=== PATIENT | female | born 1970 | race Caucasian/White ===

== ENCOUNTER 2019-02-10 17:45 | Emergency (ER) | payer SELFPAY ==
[~2019-02-10] VITALS: Ht 162.5 cm; Wt 90.1 kg
[~2019-02-10 17:45] MED LIST: ACET500L36 PO; ACHYD1T PO; ALBU8.5H4 IH; ALPR1TAB PO; AMIT100T2 PO; AZIT-21 PO; AZIT250T12 PO; BUPR100T7 PO; BUPR150T20 PO; BUTA1TAB46 PO; BUTA1TAB55 PO; CALCIUM PO; CEFA250C PO; CEFD300C3 PO; CEFU250T PO; CEPH500C GT; CEPH500C PO; CHOL500049 PO; CITA10TA70 PO; CLIN300C3 PO; CLON1TAB36 PO; COLE1TAB PO; CYCL10TA9 PO; DICY10CA12 PO; DICY20TA10 PO; DIPH1TAB PO; DIPH1TAB25 PO; DOXY100C2 PO; DULO60CA6 PO; Drisdol PO; ERT250T PO; FAMO-119 PO; FLC150T PO; FLUT9.9S NSEACH; FURO20TA4 PO; HYDR-1231 PO; HYDR-4226 PO; HYDR1TAB PO; HYDR1TAB8 OP; HYDR1TAB86 PO; HYOS-6; LACT10SO PO; LACT10SO33 PO; LINA5TAB PO; MAGN400T6 PO; MECL25TA56 PO; METH4TAB PO; METO-354 PO; METO10TA3 PO; METO25TA PO; METR500T PO; MTP25TSR PO; NF-ESOM40C PO; NITR-33 PO; NITR-65 PO; NITR100C PO; OMEP20CA13 PO; ONDA-42 SL; ONDA4TAB11 PO; ONDA8TAB9 PO; ONDAN4ODT PO; ONDN4T PO; PEG1POWD PO; PHEN200T27 PO; POLY119P5 PO; PRCD5U PO; PRD20T PO; PRD50T PO; PRM25T PO; PRM50SU PR; PROBIOTIC1 EACH PO; PROM25SU44 RC; PROP40TA5 PO; RABE20TA PO; RNT150T PO; RT-ALBUINH IH; SCOP1PAT11 TD; SCR1T PO; SENN-35 PO; SERT100T8 PO; SERT25TA PO; SUCR1ORA5 PO; SUMA100T2 PO; TOPI25CA6 PO; TOPI50TA2 PO; TRAM-21 PO; TRIM100T7 PO; ZLP10T PO; ZLP5T PO; ZOLP5TAB7 PO; [UNRECOGNIZED DRUG - CODE] PO; [UNRECOGNIZED DRUG - OTHER]; antibiotic PO; trimethoprim PO
--- NOTE | 2019-02-10 18:13 | NUR ---
Has taken excedrin at noon and zofran today. was able to take phone call during admission process
[2019-02-10] MEDS ORDERED: NS IV 1000 ML 1,000 ML IV ONE (18:19)
--- NOTE | 2019-02-10 18:28 | ED General ---
General Chief Complaint: Head/Cervical Problems Stated Complaint: HEADACHE/DIZZY/ELEV BP Nursing Triage Note: C/O "not feeling well". ambulated to rm 7. States that yesterday her head hurt and her eyes were blood shot. Bosstefan sent her home. Took bp 140/101. States taht she has been off bp meds for a awhile but took one last night. This morning- KERNS, dizzy, nausea, can't eat, has only voided once, lips tingle. No discomfort when she voids Nursing Sepsis Screen: No Definite Risk Source of Information: Patient History of Present Illness Date Seen by Provider: Feb 10, 2019 Time Seen by Provider: 18:10 Initial Comments PT ARRIVES VIA POV STATES SHE HAS "FELT LOUSY" FOR THE LAST COUPLE OF DAYS C/O HEADACHE X 2 DAYS--TOP OF HEAD. HAS HISTORY OF MIGRAINES, AND TAKES TOPAMAX. TOOK 1 EXCEDRIN AT NOON TODAY, OTDAYDAY ROBBINS HAS NOT TAKEN ANY OTHER PAIN MEDICATIONS STATES HEADACHE IS NOT BAD TODAY IT WAS YESTERDAY HAS HX OF HTN, AND SELF DC'D BP MEDICATION OVER A YEAR AGO, "BECAUSE IT WAS UNDER CONTROL" --DOES NOT KNOW NAME OF MEDICATION, BUT POSSIBLE TOPROL. STATES SHE CHECKED HER BP YESTERDAY AND IT WAS 145/101 LAST PM, DID NOT CHECK BP TODAY. TOOK OLD BP MEDICATION LAST NIGHT AND AGAIN THIS AM. 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 VISION IS NORMAL AT THIS TIME STATES HER LIPS AND FINGERS ARE TINGLY STATES SHE DID NOT URINATE AT ALL YESTERDAY AND ONLY VOIDED ONCE TODAY STATES SHE HAS ONLY HAD A COUPLE OF CRACKERS TO EAT TODAY, AND 4 GLASSES OF WATER. STATES SHE HAS "KIDNEY DISEASE" BUT DOES NOT KNOW WHAT KIND OR HOW BAD IT IS. DOES NOT SEE A FAMILY INTERVENTION SPECIALIST STATES SHE IS ALSO DIABETIC, BUT SELF DC'D HER METFORMIN A FEW YEARS AGO "BECAUSE IT WAS UNDER CONTROL" NO FEVER OR RECENT ILLNESS NO URI/SINUS SYMPTOMS NO ABDOMINAL PAIN PCP: ARGENIS--STATES SHE JUST MOVED BACK HERE, AFTER LIVING IN [place] FOR THE LAST 3 YEARS Allergies and Home Medications Allergies Coded Allergies: Penicillins (Verified Allergy, Severe, SEIZURES, 11/25/15) morphine (Verified Allergy, Severe, ANAPHYLAXIS, 11/25/15) ciprofloxacin (Verified Allergy, Intermediate, TONGUE SWELLING, 11/25/15) ciprofloxacin HCl (Verified Allergy, Mild, TONGUE SWELLING, 11/25/15) Sulfa (Sulfonamide Antibiotics) (Verified Allergy, Unknown, HIVES, 11/25/15) Home Medications Albuterol Sulfate 8.5 Gm Hfa.aer.ad, 1-2 PUFF IH Q4H PRN for shortness of breath Prescribed by: JUSTIN STAFFORD on 11/27/15 09 Amitriptyline Hcl 100 Mg Tablet, 100 MG PO HS, (Reported) Azithromycin 250 Mg Tablet, 250 MG PO DAILY Prescribed by: JUSTIN STAFFORD on 11/27/15924 Bupropion Hcl 150 Mg Tablet.sa, 150 MG PO 1200, BEDTIME, (Reported) Cefaclor 250 Mg Capsule, 250 MG PO DAILY, (Reported) Cholecalciferol (Vitamin D3) 50,000 Unit Capsule, 50,000 UNIT PO WEEK, (Reported) Clonazepam 1 Mg Tablet, 0.5-1 MG PO QID PRN for ANXIETY, (Reported) TAKES 1/2 TO 1 (1MG) TABLET Famotidine 20 Mg Tablet, 20 MG PO BID Prescribed by: DENISHA RYDER on 05/08/152056 Fluticasone Propionate 9.9 Ml [place].susp, 2 SPRAYS NSEACH DAILY Prescribed by: BRENDA العلي on 11/14/15 0153 Hyoscyamine Sulfate 0.125 Mg Tab.rapdis, NEEDED, (Reported) Lactulose 10 Gm/15 Ml Solution, 10 GM PO DAILY PRN for CONSTIPATION, (Reported) Meclizine HCl 25 Mg Tablet, 25-50 MG PO Q6H Prescribed by: KIMBERLEE CASTELLANOS on 02/10/191930 Metoclopramide HCl 10 Mg Tablet, 10 MG PO QID Prescribed by: DENISHA RYDER on 05/08/152056 Omeprazole 20 Mg Capsule.dr, 20 MG PO BID Prescribed by: JACQUIE JOSE on 06/17/15 111 Ondansetron 4 Mg Tab.rapdis, 4 MG PO Q4H PRN for NAUSEA Prescribed by: DENISHA RYDER on 05/08/152056 Peg 3350/Na Sulf,Bicarb,Cl/KCl 1 Each Powd.pack, 1 EACH PO Q3 DAYS , (Reported) Polyethylene Glycol 3350 119 Gm Powder, 17 GM PO HS PRN for CONSTIPATION Prescribed by: DENISHA RYDER on 05/08/152056 Prednisone 50 Mg Tab, 50 MG PO DAILY Prescribed by: JUSTIN STAFFORD on 11/27/15 09 Scopolamine 1 Each Patch.td72, 1 EACH TD Q3 DAYS, (Reported) Topiramate 50 Mg Tablet, 50 MG PO BID, (Reported) Zolpidem Tartrate 5 Mg Tablet, 5 MG PO HS PRN for INSOMNIA, (Reported) Patient Home Medication List Home Medication List Reviewed: Yes Review of Systems Review of Systems Constitutional: see HPI; No chills, No diaphoresis; dizziness; No malaise, No weakness EENTM: blurred vision; No nose congestion Respiratory: no symptoms reported; No short of breath Cardiovascular: no symptoms reported; No chest pain, No edema, No palpitations, No syncope Gastrointestinal: see HPI; No abdominal pain, No diarrhea; loss of appetite, nausea; No vomiting Genitourinary: see HPI, decreased output Musculoskeletal: no symptoms reported; No back pain, No neck pain Skin: no symptoms reported Psychiatric/Neurological: See HPI, Headache; Denies Numbness; Paresthesia; Denies Seizure; Tingling; Denies Weakness Hematologic/Lymphatic: No Symptoms Reported Immunological/Allergic: no symptoms reported Past Htyklpy-Ncfuql-Uriiio Hx Past Med/Social Hx: Reviewed and Corrections made Patient Social History Alcohol Use: Denies Use Recreational Drug Use: No Smoking Status: Never a Smoker Recent Foreign Travel: No Contact w/Someone Who Travel: No Recent Infectious Disease Expo: No Recent Hopitalizations: No (gastrparesis) Physical Abuse: No Sexual Abuse: No Mistreated: No Fear: No Immunizations Up To Date Tetanus Booster (TDap): Unknown Date of Influenza Vaccine: Mar 01, 2015 Seasonal Allergies Seasonal Allergies: No Past Medical History Surgeries: Yes (BLADDER SUSPENSION; LAPAROSCOPIES; CYSTOCOELE/RECTOCOELE REPAIR; HYST/BSO; KIDNEY STONE REMOVAL; HERNIA REPAIR X 2) Abdominal, Appendectomy, Bladder Surgery, Gallbladder, Hysterectomy, Oophorectomy, Renal, Tonsillectomy Respiratory: Yes Asthma, Pneumonia, Chronic Bronchitis, Sleep Apnea Currently Using CPAP: No Currently Using BIPAP: No Cardiac: Yes (SELF DC'D BP MEDICATION > 1 YEAR AGO) Hypertension Neurological: Yes (SEIZURE X 1 AFTER SURGERY; "BAD CONCUSSION" AND WENT TO THERAPY FOR 3 MONTHS) Concussion, Headaches /Migraines Reproductive Disorders: Yes Female Reproductive Disorders: 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 W[employer]ATH AND [employer]AR[employer] HAND History: Hysterectomy Sexually Transmitted Disease: No HIV/AIDS: No Genitourinary: Yes (CHRONIC RENAL DISEASE, PER PT) Kidney Infection, Bladder Infection, Kidney Stones, Renal Failure, UTI-Chronic Gastrointestinal: Yes (GASTROPARESIS; HERNIA REPAIR X 2) Abdominal Hernia, Gastroesophageal Reflux, Liver Disease/Jaundice, Chronic Constipation, Diverticulosis, Hemorrhoids, Polyps, Gall Bladder Disease Musculoskeletal: Yes (HX OF CHRONIC GENERALIZED PAIN COMPLAINTS) Endocrine: Yes (SEFL DC'D METFORMIN YEARS AGO) Diabetes, Non-Insulin dep HEENT: Yes (TONSILLECTOMY) Tonsilitis Loss of Vision: Denies Hearing Impairment: Denies Cancer: No Psychosocial: Yes Anxiety, Depression Integumentary: No Blood Disorders: No Adverse Reaction/Blood Tranf: No Family Medical History Alcoholism 19 FATHER G8 BROTHER G8 BROTHER Arthritis 19 MOTHER Asthma G8 SISTER Cataracts 19 FATHER Diabetes mellitus 19 FATHER Headache disorder G8 BROTHER G8 BROTHER G8 SISTER G8 SISTER Hypercholesterolemia 19 MOTHER Hypertension 19 FATHER 19 MOTHER Osteoporosis 19 MOTHER Respiratory disorder 19 MOTHER Hypertension, Renal Disease Physical Exam Vital Signs Vital Signs - First Documented 02/10/19 18:00 Temp 36.8 Pulse 72 Resp 16 B/P (MAP) 120/76 (91) Pulse Ox 100 Capillary Refill : Less Than 3 Seconds Height, Weight, BMI Height: 5'4.00" Weight: 186lbs. 7.0oz. 84.258477vy; 34.00 BMI Method:Stated General Appearance: No Apparent Distress, WD/WN HEENT: PERRL/EOMI Neck: Full Range of Motion, Normal Inspection, Non Tender, Supple; No Carotid Bruit, No JVD Respiratory: Normal Breath Sounds, No Accessory Muscle Use, No Respiratory Distress Cardiovascular: Regular Rate, Rhythm, No Edema, No Gallop, No JVD, No Murmur, Normal Peripheral Pulses Gastrointestinal: Normal Bowel Sounds, No Organomegaly, No Pulsatile Mass, Non Tender, Soft Back: No CVA Tenderness Extremity: Normal Capillary Refill, Normal Inspection, Normal Range of Motion, Non Tender, No Calf Tenderness, No Pedal Edema Neurologic/Psychiatric: Alert, Oriented x3, No Motor/Sensory Deficits, Normal 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/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, 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 Norm as Tested; No Abnormal Cerebellar Tests Skin: Normal Color, Warm/Dry; No Rash Progress/Results/Core Measures Suspected Sepsis Recent Fever Within 48 Hours: No Infection Criteria Present: None New/Unexplained Altered Menta: No Sepsis Screen: No Definite Risk SIRS Temperature: Pulse: 72 Respiratory Rate: 16 Laboratory Tests 02/10/19 18:19: White Blood Count 9.0 Blood Pressure 120 /76 Mean: 91 Laboratory Tests 02/10/19 18:19: Creatinine 1.64H, INR Comment 0.9, Platelet Count 321, Total Bilirubin 0.6 Results/Orders Lab Results Laboratory Tests Test 02/10/19 18:19 02/10/19 18:20 02/10/19 18:26 Range/Units White Blood Count 9.0 4.3-11.0 10^3/uL Red Blood Count 4.84 4.35-5.85 10^6/uL Hemoglobin 13.9 11.5-16.0 G/DL Hematocrit 41 35-52 % Mean Corpuscular Volume 85 80-99 FL Mean Corpuscular Hemoglobin 29 25-34 PG Mean Corpuscular Hemoglobin Concent 34 32-36 G/DL Red Cell Distribution Width 12.9 10.0-14.5 % Platelet Count 321 130-400 10^3/uL Mean Platelet Volume 9.2 7.4-10.4 FL Neutrophils (%) (Auto) 71 42-75 % Lymphocytes (%) (Auto) 20 12-44 % Monocytes (%) (Auto) 8 0-12 % Eosinophils (%) (Auto) 0 0-10 % Basophils (%) (Auto) 0 0-10 % Neutrophils # (Auto) 6.4 1.8-7.8 X 10^3 Lymphocytes # (Auto) 1.8 1.0-4.0 X 10^3 Monocytes # (Auto) 0.7 0.0-1.0 X 10^3 Eosinophils # (Auto) 0.0 0.0-0.3 10^3/uL Basophils # (Auto) 0.0 0.0-0.1 10^3/uL Prothrombin Time 12.9 12.2-14.7 SEC INR Comment 0.9 0.8-1.4 Activated Partial Thromboplast Time 31 24-35 SEC Sodium Level 138 135-145 MMOL/L Potassium Level 3.8 3.6-5.0 MMOL/L Chloride Level 105 98-107 MMOL/L Carbon Dioxide Level 22 21-32 MMOL/L Anion Gap 11 5-14 MMOL/L Blood Urea Nitrogen 19 H 7-18 MG/DL Creatinine 1.64 H 0.60-1.30 MG/DL Estimat Glomerular Filtration Rate 33 BUN/Creatinine Ratio 12 Glucose Level 101 70-105 MG/DL Calcium Level 9.7 8.5-10.1 MG/DL Corrected Calcium 8.5-10.1 MG/DL Magnesium Level 2.1 1.6-2.4 MG/DL Total Bilirubin 0.6 0.1-1.0 MG/DL Aspartate Amino Transf (AST/SGOT) 24 5-34 U/L Alanine Aminotransferase (ALT/SGPT) 15 0-55 U/L Alkaline Phosphatase 76 40-136 U/L Troponin I < 0.028 <0.028 NG/ML B-Type Natriuretic Peptide 10.2 <100.0 PG/ML Total Protein 7.4 6.4-8.2 GM/DL Albumin 4.7 H 3.2-4.5 GM/DL Urine Color YELLOW Urine Clarity CLEAR Urine pH 7 5-9 Urine Specific [place] 1.010 L 1.016-1.022 Urine Protein 1+ H NEGATIVE Urine Glucose (UA) NEGATIVE NEGATIVE Urine Ketones 1+ H NEGATIVE Urine Nitrite NEGATIVE NEGATIVE Urine Bilirubin NEGATIVE NEGATIVE Urine Urobilinogen 1 NORMAL MG/DL Urine Leukocyte Esterase NEGATIVE NEGATIVE Urine RBC (Auto) NEGATIVE NEGATIVE Urine RBC NONE /HPF Urine WBC RARE /HPF Urine Squamous Epithelial Cells 2-5 /HPF Urine Crystals NONE /LPF Urine Bacteria FEW H /HPF Urine Casts NONE /LPF Urine Mucus NEGATIVE /LPF Urine Culture Indicated NO Glucometer 69 L 70-110 MG/DL My Orders Orders - KIMBERLEE CASTELLANOS DO Accucheck Stat ONCE (02/10/19 18:19) Ed Iv/Invasive Line Start (02/10/19 18:19) Ekg Tracing (02/10/19 18:19) Monitor-Rhythm Ecg Trace Only (02/10/19 18:19) Ct Head Wo-R/O Stroke (02/10/19 18:19) Chest Pa/Lat (2 View) (02/10/19 18:19) BNP (02/10/19 18:19) Cbc With Automated Diff (02/10/19 18:19) Comprehensive Metabolic Panel (02/10/19 18:19) Magnesium (02/10/19 18:19) Protime With Inr (02/10/19 18:19) Partial Thromboplastin Time (02/10/19 18:19) Ua Culture If Indicated (02/10/19 18:19) Troponin I (02/10/19 18:19) Ed Iv/Invasive Line Start (02/10/19 18:19) Ns Iv 1000 Ml (Sodium Chloride 0.9%) (02/10/19 18:19) Ondansetron Injection (Zofran Injectio (02/10/19 18:30) Ketorolac Injection (Toradol Injection) (02/10/19 19:15) Ed Iv/Invasive Line Start (02/10/19 19:01) Lactated Ringers (Lr 1000 Ml Iv Solution (02/10/19 19:01) Pantoprazole Injection (Protonix Injecti (02/10/19 19:15) Scopolamine Patch (Transderm-Scop Patch) (02/10/19 19:15) Meclizine Tablet (Antivert Tablet) (02/10/19 19:15) Medications Given in ED Current Medications Medications Dose Ordered Sig/Yoana Route Start Time Stop Time Status Last Admin Dose Admin Ketorolac Tromethamine 30 mg ONCE ONCE IVP 02/10/19 19:15 02/10/19 19:16 DC 02/10/19 19:19 30 MG Lactated Ringer's 1,000 ml @ 0 mls/hr Q0M ONCE IV 02/10/19 19:01 02/10/19 19:03 DC 02/10/19 19:19 1,000 MLS/HR Meclizine HCl 50 mg ONCE ONCE PO 02/10/19 19:15 02/10/19 19:16 DC 02/10/19 19:19 50 MG Ondansetron HCl 8 mg ONCE ONCE IVP 02/10/19 18:30 02/10/19 18:31 DC 02/10/19 18:29 8 MG Pantoprazole 40 mg ONCE ONCE IV 02/10/19 19:15 02/10/19 19:16 DC 02/10/19 19:19 40 MG Scopolamine 1.5 mg ONCE ONCE TD 02/10/19 19:15 02/10/19 19:16 DC 02/10/19 19:20 1.5 MG Sodium Chloride 1,000 ml @ 0 mls/hr Q0M ONCE IV 02/10/19 18:19 02/10/19 18:22 DC 02/10/19 18:29 1,000 MLS/HR Vital Signs/I&O 02/10/19 18:00 Temp 36.8 Pulse 72 Resp 16 B/P (MAP) 120/76 (91) Pulse Ox 100 Capillary Refill : Less Than 3 Seconds Blood Pressure Mean: 91 Progress Note : Progress Note SYMPTOMS IMPROVED AT DISMISSAL ECG Initial ECG Impression Date: Feb 10, 2019 Initial ECG Impression Time: 18:30 Initial ECG Rate: 68 Initial ECG Rhythm: Normal Sinus Initial ECG Impression: Nonspecific Changes Initial ECG Comparisson: Unchanged Diagnostic Imaging Comments CT HEAD--NO ACUTE PROCESS CXR--NO ACUTE PROCESS PER RADIOLOGIST REPORTS AT 1900 Reviewed: Reviewed by Me Departure Impression Primary Impression: Headache Additional Impressions: HX OF HTN DEHYDRATION WITH RENAL INSUFFICIENCY Disposition: HOME, SELF-CARE Condition: Improved Departure-Patient Inst. Referrals: JUSTIN STAFFORD MD (PCP/Family) Primary Care Physician Patient Instructions: Chronic Kidney Disease, Dehydration, Adult (DC), Headache, Adult (DC), High Blood Pressure (DC) Add. Discharge Instructions: INCREASE YOUR CLEAR LIQUIDS--WATER, BROTH, JELLO, GATORADE LEAVE SCOPOLAMINE PATCH IN PLACE FOR 72 HOURS CONTINUE YOUR REGULAR MEDICATIONS PRESCRIBED, AND CONTINUE TAKING YOUR BLOOD PRESSURE MEDICATION EVERY DAY TYLENOL AND MOTRIN NEEDED FOR PAIN FOLLOW UP WITH [facility] IN 2-3 DAYS FOR FURTHER CARE, RETURN TO ER IF WORSE All discharge instructions reviewed with patient and/or family. Voiced understanding. Scripts Meclizine HCl (Meclizine HCl) 25 Mg Tablet 25-50 MG PO Q6H for Dizziness, #30 TAB Prov: KIMBERLEE CASTELLANOS DO 02/10/19 KIMBERLEE CASTELLANOS DO Feb 10, 2019 18:28
[2019-02-10] MEDS ORDERED: ONDANSETRON 4 MG/2 ML (SDV) Z0FRAN IVP ONE (18:30)
[2019-02-10 18:33] LABS: BASOPHILS % (AUTO) 0 % (0-10); EOSINOPHILS % (AUTO) 0 % (0-10); HEMATOCRIT 41 % (35-52); HEMOGLOBIN 13.9 G/DL (11.5-16.0); LYMPHOCYTES # (AUTO) 1.8 X 10^3 (1.0-4.0); LYMPHOCYTES % (AUTO) 20 % (12-44); MEAN CORPUSCULAR HEMOGLOBIN 29 PG (25-34); MEAN CORPUSCULAR HGB CONC 34 G/DL (32-36); MEAN CORPUSCULAR VOLUME 85 FL (80-99); MEAN PLATELET VOLUME 9.2 FL (7.4-10.4); MONOCYTES # (AUTO) 0.7 X 10^3 (0.0-1.0); MONOCYTES % (AUTO) 8 % (0-12); NEUTROPHILS # (AUTO) 6.4 X 10^3 (1.8-7.8); NEUTROPHILS % (AUTO) 71 % (42-75); PLATELET COUNT 321 10^3/uL (130-400); RED CELL DISTRIBUTION WIDTH 12.9 % (10.0-14.5)
[2019-02-10 18:34] LABS: BILIRUBIN,URINE NEGATIVE (NEGATIVE); CLARITY,URINE CLEAR; COLOR,URINE YELLOW; GLUCOSE, URINE (UA) NEGATIVE (NEGATIVE); KETONES,URINE 1+ (NEGATIVE); LEUKOCYTE ESTERASE ,URINE NEGATIVE (NEGATIVE); NITRITE,URINE NEGATIVE (NEGATIVE); PH,URINE 7 (5-9); PROTEIN,URINE 1+ (NEGATIVE); UROBILINOGEN,URINE 1 MG/DL (NORMAL)
[2019-02-10 18:44] LABS: INR 0.9 (0.8-1.4); PROTHROMBIN TIME PATIENT 12.9 SEC (12.2-14.7)
[2019-02-10 18:47] LABS: BACTERIA,URINE FEW /HPF; WBC,URINE RARE /HPF
[2019-02-10 18:53] LABS: ALANINE AMINOTRANSFERASE 15 U/L (0-55); ALBUMIN 4.7 GM/DL (3.2-4.5); ALKALINE PHOSPHATASE 76 U/L (40-136); BILIRUBIN,TOTAL 0.6 MG/DL (0.1-1.0); BUN/CREATININE RATIO 12; CALCIUM 9.7 MG/DL (8.5-10.1); CARBON DIOXIDE 22 MMOL/L (21-32); CHLORIDE 105 MMOL/L (98-107); CREATININE SERUM 1.64 MG/DL (0.60-1.30); GFR ESTIMATED 33; GLUCOSE 101 MG/DL (70-105); MAGNESIUM 2.1 MG/DL (1.6-2.4); POTASSIUM 3.8 MMOL/L (3.6-5.0); SODIUM 138 MMOL/L (135-145); TOTAL PROTEIN 7.4 GM/DL (6.4-8.2)
--- NOTE | 2019-02-10 18:56 | Diagnostic Imaging Report ---
PROCEDURE: CT head wo r/o stroke. TECHNIQUE: Multiple contiguous axial images were obtained through the brain without the use of intravenous contrast. Auto Exposure Controls were utilized during the CT exam to meet ALARA standards for radiation dose reduction. INDICATION: Headache, nausea x1 day. CORRELATION STUDY: CT head 04/27/2011. FINDINGS: The ventricles and sulci are age-appropriate. No abnormal areas of decreased attenuation to suggest edema. Increased density in the basilar artery appears unchanged from prior study and there is no suggestion for hyperdense MCA sign. Basilar cisterns are maintained. Bony calvarium is intact. Paranasal sinus and mastoid air cells are clear. IMPRESSION: 1. Negative for acute intracranial abnormality. Dictated by: Dictated on workstation # [id number]
--- NOTE | 2019-02-10 18:57 | Diagnostic Imaging Report ---
INDICATION: Headache and nausea. EXAMINATION: PA and lateral views of the chest are obtained. COMPARISON: Comparison is made to study of 11/26/2015. FINDINGS: Heart size and pulmonary vascularity are within normal limits, and the lungs are clear, bilaterally. IMPRESSION: Unremarkable chest. Dictated by: Dictated on workstation # [id number]
[2019-02-10] MEDS ORDERED: LACTATED RINGERS 1,000 ML IV ONE (19:01)
[2019-02-10] MEDS ORDERED: PANTOPRAZOLE 40 MG (PROTONIX) VIAL IV ONE (19:15)
[2019-02-10] MEDS ORDERED: SCOPOLAMINE 1.5 MG (TRANSDERM-SCOP) PATCH TD ONE (19:15)
[2019-02-10] MEDS ORDERED: KETOROLAC 30 MG/ML VIAL IVP ONE (19:15)
[2019-02-10] MEDS ORDERED: MECLIZINE 25 MG (ANTIVERT) TAB PO ONE (19:15)
[2019-02-10] MEDS ORDERED: MECL-106 PO (19:31)
[2019-02-10 20:10] VITALS: BP 118/61
== END 2019-02-10 20:11 | disposition home or self-care (01) ==
LOC: EDUNIT# 17:45 → ER 17:46
DX: R51 Headache (principal); I10 Essential (primary) hypertension; E86.0 Dehydration; N28.9 Disorder of kidney and ureter, unspecified; E11.43 Type 2 diabetes mellitus with diabetic autonomic (poly)neuropathy; K31.84 Gastroparesis; J45.909 Unspecified asthma, uncomplicated; G43.909 Migraine, unspecified, not intractable, without status migrainosus; F41.9 Anxiety disorder, unspecified; F32.9 Major depressive disorder, single episode, unspecified; K21.9 Gastro-esophageal reflux disease without esophagitis; Z88.0 Allergy status to penicillin; Z87.820 Personal history of traumatic brain injury; Z87.440 Personal history of urinary (tract) infections; Z87.442 Personal history of urinary calculi; Z88.5 Allergy status to narcotic agent; Z88.1 Allergy status to other antibiotic agents; Z88.2 Allergy status to sulfonamides; Z79.51 Long term (current) use of inhaled steroids; Z79.52 Long term (current) use of systemic steroids; Z90.710 Acquired absence of both cervix and uterus; Z90.722 Acquired absence of ovaries, bilateral; Z90.49 Acquired absence of other specified parts of digestive tract; Z90.89 Acquired absence of other organs; Z82.49 Family history of ischemic heart disease and other diseases of the circulatory system
CPT/HCPCS: 36415; 70450; 71046; 80053; 81000; 82962; 83735; 83880; 84484; 85025; 85610; 85730; 93005; 93041

== ENCOUNTER 2019-07-17 19:10 | Emergency (ER) | payer OTHER ==
[~2019-07-17] VITALS: Ht 165 cm; Wt 90.1 kg
[~2019-07-17 19:10] MED LIST changes: +MECL-149 PO; -OMEP20CA13 PO; +OMEP20CA18 PO
[2019-07-17] MEDS ORDERED: ORPHENADRINE 60 MG/2 ML (NORFLEX) AMP IM ONE (22:15)
[2019-07-17] MEDS ORDERED: TRM50T PO (22:22)
[2019-07-17] MEDS ORDERED: CYCL10TA9 PO (22:22)
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
[2019-07-17] MEDS ORDERED: RX-TRAMADOL 50 MG (ULTRAM) TAB PPK#4 PO STA (22:24)
[2019-07-17 22:42] VITALS: BP 137/84
== END 2019-07-17 22:42 | disposition home or self-care (01) ==
LOC: EDUNIT# 19:10 → ER 19:12
DX: S39.012A Strain of muscle, fascia and tendon of lower back, initial encounter (principal); M54.42 Lumbago with sciatica, left side; J45.909 Unspecified asthma, uncomplicated; I10 Essential (primary) hypertension; K21.9 Gastro-esophageal reflux disease without esophagitis; F41.9 Anxiety disorder, unspecified; F32.9 Major depressive disorder, single episode, unspecified; Z87.820 Personal history of traumatic brain injury; Z79.51 Long term (current) use of inhaled steroids; Z88.0 Allergy status to penicillin; Z88.5 Allergy status to narcotic agent; Z88.1 Allergy status to other antibiotic agents; Z88.2 Allergy status to sulfonamides; X50.1XXA Overexertion from prolonged static or awkward postures, initial encounter
CPT/HCPCS: 99284

== ENCOUNTER 2022-02-08 20:52 | Emergency (ER) | payer SELFPAY ==
[~2022-02-08] VITALS: Ht 165 cm; Wt 94.0 kg
[~2022-02-08 20:52] MED LIST changes: -CEFA250C PO; +CEFA250C44 PO; +CYCL10TA25 PO; -LACT10SO PO; +LACT10SO3 PO; +MTC10T PO; +SCOP1PAT10 TD; -SCOP1PAT11 TD; +TRM50T PO
[2022-02-08] MEDS ORDERED: diphenhydrAMINE 50 MG/ML INJ (BENADRYL) IV STA (20:59)
[2022-02-08] MEDS ORDERED: FAMOTIDINE 20MG/2ML IV (PEPCID) IV STA (20:59)
[2022-02-08] MEDS ORDERED: methylPREDNISolone 125 MG (Solu-MEDROL) VIAL IV STA (20:59)
[2022-02-08] MEDS ORDERED: RT-HYPERTONIC SALINE 3% 4 ML NEB INH ONE (21:00)
[2022-02-08] MEDS ORDERED: RT-epiNEPHrine (RACEMIC) 2.25% 0.5 ML VIAL INH ONE (21:00)
[2022-02-08] MEDS ORDERED: EPINEPHrine INJECTION 1 MG/ML AMP IM ONE (21:00)
[2022-02-08] MEDS ORDERED: FAMOTIDINE 20MG/2ML IV (PEPCID) ONE (21:10)
[2022-02-08] MEDS ORDERED: RT-epiNEPHrine (RACEMIC) 2.25% 0.5 ML VIAL ONE (21:14)
--- NOTE | 2022-02-08 21:44 | ED General ---
General Chief Complaint: Allergic Reaction Stated Complaint: ALLERGIC REACTION TO TOMATO,THROAT SWELLING Source of Information: Patient History of Present Illness Date Seen by Provider: Feb 08, 2022 Allergies and Home Medications Allergies Coded Allergies: Penicillins (Verified Allergy, Severe, SEIZURES, 11/25/15) morphine (Verified Allergy, Severe, ANAPHYLAXIS, 11/25/15) ciprofloxacin (Verified Allergy, Intermediate, TONGUE SWELLING, 11/25/15) ciprofloxacin HCl (Verified Allergy, Mild, TONGUE SWELLING, 11/25/15) Sulfa (Sulfonamide Antibiotics) (Verified Allergy, Unknown, HIVES, 11/25/15) Patient Home Medication List Albuterol Sulfate (Proair Hfa) 8.5 Gm Hfa.aer.ad, 1-2 PUFF IH Q4H PRN for shortness of breath Prescribed by: JUSTIN STAFFORD on 11/27/15 0925 Amitriptyline Hcl (Amitriptyline Hcl) 100 Mg Tablet, 100 MG PO HS, (Reported) Entered as Reported by: JOSEP GUPTA on 09/07/14 1550 Azithromycin (Azithromycin) 250 Mg Tablet, 250 MG PO DAILY Prescribed by: JUSTIN STAFFORD on 11/27/15 0925 Bupropion Hcl (Bupropion Hcl Sr) 150 Mg Tablet.sa, 150 MG PO 1200, BEDTIME, (R eported) Entered as Reported by: JOSEP GUPTA on 09/07/14 1550 Cefaclor (Cefaclor) 250 Mg Capsule, 250 MG PO DAILY, (Reported) Entered as Reported by: DARLIN MORILLO on 08/08/15 194 Cholecalciferol (Vitamin D3) (Vitamin D) 50,000 Unit Capsule, 50,000 UNIT PO WEEK, (Reported) Entered as Reported by: JUSTIN STAFFORD on 11/26/15 0934 Clonazepam (Klonopin) 1 Mg Tablet, 0.5-1 MG PO QID PRN for ANXIETY, (Reported) Entered as Reported by: KANA MAYS on 04/14/11 0214 Cyclobenzaprine HCl (Cyclobenzaprine HCl) 10 Mg Tablet, 10 MG PO Q8H PRN for SPASMS Prescribed by: DORIS ALVAREZ on 07/17/192221 Famotidine (Pepcid) 20 Mg Tablet, 20 MG PO BID Prescribed by: DENISHA RYDER on 05/08/152056 Fluticasone Propionate (Flonase Allergy Relief) 9.9 Ml [place].susp, 2 SPRAYS NSEACH DAILY Prescribed by: BRENDA العلي on 11/14/15 0153 Hyoscyamine Sulfate (Hyoscyamine Sulfate) 0.125 Mg Tab.rapdis, NEEDED, ( Reported) Entered as Reported by: ENDY SANCHEZ on 05/04/151917 Lactulose (Lactulose) 10 Gm/15 Ml Solution, 10 GM PO DAILY PRN for CONSTIPATION, (Reported) Entered as Reported by: JUSTIN STAFFORD on 11/26/15 0939 Meclizine HCl (Meclizine HCl) 25 Mg Tablet, 25-50 MG PO Q6H Prescribed by: KIMBERLEE CATSELLANOS on 02/10/191930 Metoclopramide HCl (Metoclopramide HCl) 10 Mg Tablet, 10 MG PO QID Prescribed by: DENISHA RYDER on 05/08/152056 Omeprazole (Omeprazole) 20 Mg Capsule.dr, 20 MG PO BID Prescribed by: JACQUIE JOSE on 06/17/15 111 Ondansetron (Ondansetron Odt) 4 Mg Tab.rapdis, 4 MG PO Q4H PRN for NAUSEA Prescribed by: DENISHA RYDER on 05/08/152056 Peg 3350/Na Sulf,Bicarb,Cl/KCl (Golytely Packet) 1 Each Powd.pack, 1 EACH PO Q3 DAYS , (Reported) Entered as Reported by: FAUSTO CANO on 11/25/151851 Polyethylene Glycol 3350 (Miralax) 119 Gm Powder, 17 GM PO HS PRN for CONSTIPATION Prescribed by: DENISHA RYDER on 05/08/152056 Prednisone (Prednisone) 50 Mg Tab, 50 MG PO DAILY Prescribed by: JUSTIN STAFFORD on 11/27/15 0925 Scopolamine (Transderm-Scop) 1 Each Patch.td72, 1 EACH TD Q3 DAYS, (Reported) Entered as Reported by: FAUSTO CANO on 11/25/151851 Topiramate (Topiramate) 50 Mg Tablet, 50 MG PO BID, (Reported) Entered as Reported by: TERRIE NEAL on 09/14/14 0934 Tramadol HCl (Tramadol HCl) 50 Mg Tablet, 50 MG PO Q6H PRN for PAIN Prescribed by: DORIS ALVAREZ on 07/17/19 2222 Zolpidem Tartrate (Zolpidem Tartrate) 5 Mg Tablet, 5 MG PO HS PRN for INSOMNIA, (Reported) Entered as Reported by: JUSTIN STAFFORD on 11/27/15 0921 Past Yujfuzp-Ehyoro-Sopviq Hx Immunizations Up To Date Tetanus Booster (TDap): Unknown Seasonal Allergies Seasonal Allergies: No Past Medical History Surgeries: Yes Abdominal, Appendectomy, Bladder Surgery, Gallbladder, Hysterectomy, Oophorectomy, Renal, Tonsillectomy Respiratory: Yes Asthma, Pneumonia, Chronic Bronchitis, Sleep Apnea Currently Using CPAP: No Currently Using BIPAP: No Cardiac: Yes (SELF DC'D BP MEDICATION > 1 YEAR AGO) Hypertension Neurological: Yes Concussion, Headaches /Migraines Reproductive Disorders: Yes Female Reproductive Disorders: 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 Sexually Transmitted Disease: No HIV/AIDS: No Genitourinary: Yes (CHRONIC RENAL DISEASE, PER PT) Kidney Infection, Bladder Infection, Kidney Stones, Renal Failure, UTI-Chronic Gastrointestinal: Yes (GASTROPARESIS; HERNIA REPAIR X 2) Abdominal Hernia, Gastroesophageal Reflux, Liver Disease/Jaundice, Chronic Constipation, Diverticulosis, Hemorrhoids, Polyps, Gall Bladder Disease Musculoskeletal: Yes (HX OF CHRONIC GENERALIZED PAIN COMPLAINTS) Endocrine: Yes (SEFL DC'D METFORMIN YEARS AGO) Diabetes, Non-Insulin dep HEENT: Yes (TONSILLECTOMY) Tonsilitis Loss of Vision: Denies Hearing Impairment: Denies Cancer: No Psychosocial: Yes Anxiety, Depression Integumentary: No Blood Disorders: No Adverse Reaction/Blood Tranf: No Family Medical History Alcoholism 19 FATHER G8 BROTHER G8 BROTHER Arthritis 19 MOTHER Asthma G8 SISTER Cataracts 19 FATHER Diabetes mellitus 19 FATHER Headache disorder G8 BROTHER G8 BROTHER G8 SISTER G8 SISTER Hypercholesterolemia 19 MOTHER Hypertension 19 FATHER 19 MOTHER Osteoporosis 19 MOTHER Respiratory disorder 19 MOTHER Hypertension, Renal Disease Physical Exam Vital Signs Vital Signs - First Documented 02/08/22 02/08/22 21:07 21:11 Pulse 109 B/P (MAP) 145/92 Pulse Ox 99 O2 Delivery Nasal Cannula O2 Flow Rate 2.00 Capillary Refill : Height, Weight, BMI Height: 5'4.00" Weight: 186lbs. 7.0oz. 84.830289er; 33.00 BMI Method:Stated Progress/Results/Core Measures Suspected Sepsis SIRS Temperature: Pulse: 109 Respiratory Rate: Blood Pressure 145 /92 Mean: 109 Results/Orders My Orders Orders - KIMBERLEE CASTELLANOS DO Ed Iv/Invasive Line Start (02/08/22 20:59) O2 (02/08/22 20:59) Monitor-Rhythm Ecg Trace Only (02/08/22 20:59) Famotidine Injection (Pepcid Injection) (02/08/22 20:59) Diphenhydramine Injection (Benadryl Inje (02/08/22 20:59) Methylprednisolone Sod Succ (Solu-Medrol (02/08/22 20:59) Epinephrine 1 Mg Injection (Adrenalin I (02/08/22 21:00) Rt Epinephrine (Racemic Epinephrine 2.25 (02/08/22 21:00) Rt Request For Service (02/08/22 20:59) Svn Small Volume Nebulizer (02/08/22 20:59) Hypertonic Saline 3% Neb (Rt-Hypertonic (02/08/22 21:00) Famotidine Injection (Pepcid Injection) (02/08/22 21:10) Rt Epinephrine (Racemic Epinephrine 2.25 (02/08/22 21:14) Medications Given in ED Current Medications Medications Dose Ordered Sig/Yoana Route Start Time Stop Time Status Last Admin Dose Admin Epinephrine 0.5 ml ONCE ONCE INH 02/08/22 21:00 02/08/22 21:03 DC 02/08/22 21:22 0.5 ML Epinephrine HCl 0.3 mg ONCE ONCE IM 02/08/22 21:00 02/08/22 21:03 DC 02/08/22 21:11 0.3 MG Sodium Chloride Hypertonic 2 ml ONCE ONCE INH 02/08/22 21:00 02/08/22 21:03 DC 02/08/22 21:22 2 ML Vital Signs/I&O 02/08/22 02/08/22 02/08/22 21:07 21:11 21:21 Pulse 109 B/P (MAP) 145/92 Pulse Ox 99 100 O2 Delivery Nasal Cannula Nasal Cannula O2 Flow Rate 2.00 2.00 Capillary Refill : Blood Pressure Mean: 109 Departure Impression Primary Impression: Allergic reaction to food Disposition: 01 HOME, SELF-CARE Condition: Improved Departure-Patient Inst. Decision time for Depature: 22:22 Referrals: NO,LOCAL PHYSICIAN (PCP) [place] Care Physician [facility] [place] Instructions: Food Allergy Add. Discharge Instructions: LOTS OF CLEAR LIQUIDS BENADRYL 50 MG EVERY 4-6 HOURS NEEDED RETURN TO ER IF SYMPTOMS WORSEN All discharge instructions reviewed with patient and/or family. Voiced understanding. Scripts Epinephrine (Epipen 2-Ervin) 0.3 Mg/0.3 Ml Auto.injct 0.3 MG IJ PRN, #1 EA Prov: KIMBERLEE CASTELLANOS DO 02/08/22 Famotidine (Pepcid) 40 Mg Tablet 40 MG PO DAILY, #30 TAB Prov: KIMBERLEE CASTELLANOS DO 02/08/22 Prednisone (Prednisone) 20 Mg Tab 40 MG PO DAILY, #6 TAB 0 Refills Prov: KIMBERLEE CASTELLANOS DO 02/08/22 KIMBERLEE CASTELLANOS DO Feb 08, 2022 21:44
[2022-02-08] MEDS ORDERED: EPIN0.3P3 IJ (22:25)
[2022-02-08] MEDS ORDERED: PRD20T PO (22:25)
[2022-02-08] MEDS ORDERED: FAMO40TA72 PO (22:25)
[2022-02-08] MEDS ORDERED: predniSONE 20 MG TAB PO ONE (22:30)
[2022-02-08 22:35] VITALS: BP 125/70
== END 2022-02-08 22:35 | disposition home or self-care (01) ==
LOC: EDUNIT# 20:52 → ER 20:53
DX: T78.1XXA Other adverse food reactions, not elsewhere classified, initial encounter (principal)
CPT/HCPCS: 93041; 94640

== ENCOUNTER 2022-05-23 16:18 | Emergency (ER) | payer SELFPAY ==
[~2022-05-23] VITALS: Ht 165 cm; Wt 93.0 kg
[~2022-05-23 16:18] MED LIST changes: +ALBU8.5H6 IH; +EPIN0.3P3 IJ; +FAMO40TA72 PO; -RT-ALBUINH IH
[2022-05-23 17:20] LABS: BASOPHILS # (AUTO) 0.1 10^3/uL (0.0-0.1); BASOPHILS % (AUTO) 1 % (0-10); EOSINOPHILS # (AUTO) 0.1 10^3/uL (0.0-0.3); EOSINOPHILS % (AUTO) 1 % (0-10); HEMATOCRIT 44 % (35-52); HEMOGLOBIN 14.6 g/dL (11.5-16.0); LYMPHOCYTES # (AUTO) 2.9 10^3/uL (1.0-4.0); LYMPHOCYTES % (AUTO) 37 % (12-44); MEAN CORPUSCULAR HEMOGLOBIN 28 pg (25-34); MEAN CORPUSCULAR HGB CONC 34 g/dL (32-36); MEAN CORPUSCULAR VOLUME 84 fL (80-99); MONOCYTES # (AUTO) 0.8 10^3/uL (0.0-1.0); MONOCYTES % (AUTO) 10 % (0-12); NEUTROPHILS # (AUTO) 4.1 10^3/uL (1.8-7.8); NEUTROPHILS % (AUTO) 52 % (42-75); PLATELET COUNT 377 10^3/uL (130-400); WHITE BLOOD COUNT 7.9 10^3/uL (4.3-11.0)
[2022-05-23 17:25] LABS: ALBUMIN 4.7 GM/DL (3.2-4.5); CHLORIDE 106 MMOL/L (98-107); POTASSIUM 4.1 MMOL/L (3.6-5.0); SODIUM 139 MMOL/L (135-145)
[2022-05-23 17:26] LABS: CALCIUM 9.4 MG/DL (8.5-10.1)
[2022-05-23 17:27] LABS: GLUCOSE 96 MG/DL (70-105); TOTAL PROTEIN 7.8 GM/DL (6.4-8.2)
[2022-05-23 17:28] LABS: CARBON DIOXIDE 23 MMOL/L (21-32)
[2022-05-23 17:29] LABS: BILIRUBIN,TOTAL 0.4 MG/DL (0.1-1.0)
[2022-05-23 17:31] LABS: ALKALINE PHOSPHATASE 94 U/L (40-136); CREATININE SERUM 1.18 MG/DL (0.60-1.30); GFR ESTIMATED 55
[2022-05-23 17:32] LABS: BUN/CREATININE RATIO 16
[2022-05-23 17:34] LABS: ALANINE AMINOTRANSFERASE 23 U/L (0-55)
--- NOTE | 2022-05-23 17:38 | ED Abdominal Pain ---
General Chief Complaint: Abdominal/GI Problems Stated Complaint: LEFT SIDE PAIN Nursing Triage Note: LEFT LOWER ABD PAIN THAT RAIDIATES INTO BACK. ALSO IS HAVING DIARRHA. WAS SEEN AT WALK IN YESTERDAY AND TOLD TO COME TO THE ER. History of Present Illness Date Seen by Provider: May 23, 2022 Time Seen by Provider: 16:40 Initial Comments 52 year old female presents with left lower abd pain for 3-5 days, diarrhea intermittently. History of Gastroperesis, cholecystectomy, and appendectomy. Evaluated by Walk [facility] care at [facility] yesterday and told to come here, if no improvement. Timing/Duration: 3-4 Days Severity/Quality: Mild Location: LLQ Radiation: No Radiation Associated Symptoms: No Back Pain, No Chest Pain, No Heartburn; Nausea/Vomiting; No Swelling/Mass in Abdomen Allergies and Home Medications Allergies Coded Allergies: Penicillins (Verified Allergy, Severe, SEIZURES, 11/25/15) morphine (Verified Allergy, Severe, ANAPHYLAXIS, 11/25/15) ciprofloxacin (Verified Allergy, Intermediate, TONGUE SWELLING, 11/25/15) ciprofloxacin HCl (Verified Allergy, Mild, TONGUE SWELLING, 11/25/15) Sulfa (Sulfonamide Antibiotics) (Verified Allergy, Unknown, HIVES, 11/25/15) Patient Home Medication List Home Medication List Reviewed: Yes Albuterol Sulfate (Ventolin Hfa) 8.5 Gm Hfa.aer.ad, 1-2 PUFF IH Q4H PRN for shortness of breath Prescribed by: JUSTIN STAFFORD on 11/27/15 0925 Amitriptyline Hcl (Amitriptyline Hcl) 100 Mg Tablet, 100 MG PO HS, (Reported) Entered as Reported by: JOSEP GUPTA on 09/07/14 155 Azithromycin (Azithromycin) 250 Mg Tablet, 250 MG PO DAILY Prescribed by: JUSTIN STAFFORD on 11/27/15 0925 Bupropion Hcl (Bupropion Hcl Sr) 150 Mg Tablet.sa, 150 MG PO 1200, BEDTIME, (Reported) Entered as Reported by: JOSEP GUPTA on 09/07/14 155 Cefaclor (Cefaclor) 250 Mg Capsule, 250 MG PO DAILY, (Reported) Entered as Reported by: DARLIN MORILLO on 08/08/151946 Cholecalciferol (Vitamin D3) (Vitamin D) 50,000 Unit Capsule, 50,000 UNIT PO WEEK, (Reported) Entered as Reported by: JUSTIN STAFFORD on 11/26/15 0934 Clonazepam (Klonopin) 1 Mg Tablet, 0.5-1 MG PO QID PRN for ANXIETY, (Reported) Entered as Reported by: KANA MAYS on 04/14/11 0214 Cyclobenzaprine HCl (Cyclobenzaprine HCl) 10 Mg Tablet, 10 MG PO Q8H PRN for SPASMS Prescribed by: DORIS ALVAREZ on 07/17/192221 Epinephrine (Epipen 2-Ervin) 0.3 Mg/0.3 Ml Auto.injct, 0.3 MG IJ PRN Prescribed by: KIMBERLEE CASTELLANOS on 02/08/222224 Famotidine (Pepcid) 20 Mg Tablet, 20 MG PO BID Prescribed by: DENISHA RYDER on 05/08/152056 Famotidine (Pepcid) 40 Mg Tablet, 40 MG PO DAILY Prescribed by: KIMBERLEE CASTELLANOS on 02/08/222224 Fluticasone Propionate (Flonase Allergy Relief) 9.9 Ml [place].susp, 2 SPRAYS NSEACH DAILY Prescribed by: BRENDA العلي on 11/14/15 0153 Hyoscyamine Sulfate (Hyoscyamine Sulfate) 0.125 Mg Tab.rapdis, NEEDED, (Reported) Entered as Reported by: ENDY SANCHEZ on 05/04/151917 Lactulose (Lactulose) 10 Gm/15 Ml Solution, 10 GM PO DAILY PRN for CONSTIPATION, (Reported) Entered as Reported by: JUSTIN STAFFORD on 11/26/15 0939 Meclizine HCl (Meclizine HCl) 25 Mg Tablet, 25-50 MG PO Q6H Prescribed by: KIMBERLEE CASTELLANOS on 02/10/19 193 Metoclopramide HCl (Metoclopramide HCl) 10 Mg Tablet, 10 MG PO QID Prescribed by: DENISHA RYDER on 05/08/152056 Omeprazole (Omeprazole) 20 Mg Capsule.dr, 20 MG PO BID Prescribed by: JACQUIE JOSE on 06/17/15 111 Ondansetron (Ondansetron Odt) 4 Mg Tab.rapdis, 4 MG PO Q4H PRN for NAUSEA Prescribed by: DENISHA RYDER on 05/08/152056 Ondansetron (Ondansetron Odt) 4 Mg Tab.rapdis, 4 MG PO Q6H PRN for NAUSEA/VOMITING Prescribed by: DORIS ALVAREZ on 05/23/221834 Peg 3350/Na Sulf,Bicarb,Cl/KCl (Golytely Packet) 1 Each Powd.pack, 1 EACH PO Q3 DAYS , (Reported) Entered as Reported by: FAUSTO CANO on 11/25/151851 Polyethylene Glycol 3350 (Miralax) 119 Gm Powder, 17 GM PO HS PRN for CONSTIPATION Prescribed by: DENISHA RYDER on 05/08/152056 Prednisone (Prednisone) 50 Mg Tab, 50 MG PO DAILY Prescribed by: JUSTIN STAFFORD on 11/27/15924 Prednisone (Prednisone) 20 Mg Tab, 40 MG PO DAILY Prescribed by: KIMBERLEE CASTELLANOS on 02/08/222224 Scopolamine (Transderm-Scop) 1 Each Patch.td72, 1 EACH TD Q3 DAYS, (Reported) Entered as Reported by: FAUSTO CANO on 11/25/151851 Topiramate (Topiramate) 50 Mg Tablet, 50 MG PO BID, (Reported) Entered as Reported by: TERRIE NEAL on 09/14/14 09 Tramadol HCl (Tramadol HCl) 50 Mg Tablet, 50 MG PO Q6H PRN for PAIN Prescribed by: DORIS ALVAREZ on 07/17/192221 Zolpidem Tartrate (Zolpidem Tartrate) 5 Mg Tablet, 5 MG PO HS PRN for INSOMNIA, (Reported) Entered as Reported by: JUSTIN STAFFORD on 11/27/15 0921 Review of Systems Review of Systems Constitutional: no symptoms reported, see HPI Gastrointestinal: See HPI, Abdominal Pain, Diarrhea, Nausea; Denies Vomiting Genitourinary: No Symptoms Reported, See HPI All Other Systems Reviewed Negative Unless Noted: Yes Past Qemymav-Rzfreb-Dpxekt Hx Patient Social History Tobacco Use?: No Substance use?: No Alcohol Use?: No Immunizations Up To Date Tetanus Booster (TDap): Unknown First/Initial COVID19 Vaccinat: 12/2020 Second COVID19 Vaccination Yimi: 01/2021 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 Seasonal Allergies Seasonal Allergies: No Past Medical History Surgeries: Yes Abdominal, Appendectomy, Bladder Surgery, Gallbladder, Hysterectomy, Oophorectomy, Renal, Tonsillectomy Respiratory: Yes Asthma, Pneumonia, Chronic Bronchitis, Sleep Apnea Currently Using CPAP: No Currently Using BIPAP: No Cardiac: Yes (SELF DC'D BP MEDICATION > 1 YEAR AGO) Hypertension Neurological: Yes Concussion, Headaches /Migraines Reproductive Disorders: Yes Female Reproductive Disorders: 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 Sexually Transmitted Disease: No HIV/AIDS: No Genitourinary: Yes (CHRONIC RENAL DISEASE, PER PT) Kidney Infection, Bladder Infection, Kidney Stones, Renal Failure, UTI-Chronic Gastrointestinal: Yes (GASTROPARESIS; HERNIA REPAIR X 2) Abdominal Hernia, Gastroesophageal Reflux, Liver Disease/Jaundice, Chronic Constipation, Diverticulosis, Hemorrhoids, Polyps, Gall Bladder Disease Musculoskeletal: Yes (HX OF CHRONIC GENERALIZED PAIN COMPLAINTS) Endocrine: Yes (SEFL DC'D METFORMIN YEARS AGO) Diabetes, Non-Insulin dep HEENT: Yes (TONSILLECTOMY) Tonsilitis Loss of Vision: Denies Hearing Impairment: Denies Cancer: No Psychosocial: Yes Anxiety, Depression Integumentary: No Blood Disorders: No Adverse Reaction/Blood Tranf: No Family Medical History Reviewed Nursing Family Hx Alcoholism 19 FATHER G8 BROTHER G8 BROTHER Arthritis 19 MOTHER Asthma G8 SISTER Cataracts 19 FATHER Diabetes mellitus 19 FATHER Headache disorder G8 BROTHER G8 BROTHER G8 SISTER G8 SISTER Hypercholesterolemia 19 MOTHER Hypertension 19 FATHER 19 MOTHER Osteoporosis 19 MOTHER Respiratory disorder 19 MOTHER Hypertension, Renal Disease PAST SURGICAL HISTORY: -RIGHT FOOT SURGERY -HYSTERECTOMY/BILATERAL SALPINGO-OOPHORECTOMY -ANTERIOR AND POSTERIOR REPAIR -APPENDECTOMY -CHOLECYSTECTOMY Physical Exam Vital Signs Vital Signs - First Documented 05/23/22 16:25 Temp 37.2 Pulse 80 Resp 16 B/P (MAP) 152/109 (123) Pulse Ox 98 O2 Delivery Room Air Capillary Refill : Less Than 3 Seconds Height/Weight/BMI Height: 5'4.00" Weight: 186lbs. 7.0oz. 84.138961bj; 34.00 BMI Method:Stated General Appearance: WD/WN, no apparent distress Neck: non-tender, full range of motion, supple, normal inspection Respiratory: chest non-tender, lungs clear, normal breath sounds Cardiovascular: normal peripheral pulses, regular rate, rhythm Gastrointestinal: normal bowel sounds, soft; No distended, No guarding, No rebound; tenderness (LLQ); No mass Extremities: normal range of motion, non-tender, normal inspection, normal capillary refill Neurologic/Psychiatric: no motor/sensory deficits, alert, normal mood/affect, oriented x 3 Skin: normal color, warm/dry Progress/Results/Core Measures Results/Orders Lab Results Laboratory Tests Test 05/23/22 17:11 05/23/22 17:37 Range/Units White Blood Count 7.9 4.3-11.0 10^3/uL Red Blood Count 5.18 H 3.80-5.11 10^6/uL Hemoglobin 14.6 11.5-16.0 g/dL Hematocrit 44 35-52 % Mean Corpuscular Volume 84 80-99 fL Mean Corpuscular Hemoglobin 28 25-34 pg Mean Corpuscular Hemoglobin Concent 34 32-36 g/dL Red Cell Distribution Width 12.2 10.0-14.5 % Platelet Count 377 130-400 10^3/uL Mean Platelet Volume 9.0 9.0-12.2 fL Immature Granulocyte % (Auto) 0 % Neutrophils (%) (Auto) 52 42-75 % Lymphocytes (%) (Auto) 37 12-44 % Monocytes (%) (Auto) 10 0-12 % Eosinophils (%) (Auto) 1 0-10 % Basophils (%) (Auto) 1 0-10 % Neutrophils # (Auto) 4.1 1.8-7.8 10^3/uL Lymphocytes # (Auto) 2.9 1.0-4.0 10^3/uL Monocytes # (Auto) 0.8 0.0-1.0 10^3/uL Eosinophils # (Auto) 0.1 0.0-0.3 10^3/uL Basophils # (Auto) 0.1 0.0-0.1 10^3/uL Immature Granulocyte # (Auto) 0.0 0.0-0.1 10^3/uL Sodium Level 139 135-145 MMOL/L Potassium Level 4.1 3.6-5.0 MMOL/L Chloride Level 106 98-107 MMOL/L Carbon Dioxide Level 23 21-32 MMOL/L Anion Gap 10 5-14 MMOL/L Blood Urea Nitrogen 19 H 7-18 MG/DL Creatinine 1.18 0.60-1.30 MG/DL Estimat Glomerular Filtration Rate 55 BUN/Creatinine Ratio 16 Glucose Level 96 70-105 MG/DL Calcium Level 9.4 8.5-10.1 MG/DL Corrected Calcium 8.5-10.1 MG/DL Total Bilirubin 0.4 0.1-1.0 MG/DL Aspartate Amino Transf (AST/SGOT) 24 5-34 U/L Alanine Aminotransferase (ALT/SGPT) 23 0-55 U/L Alkaline Phosphatase 94 40-136 U/L Total Protein 7.8 6.4-8.2 GM/DL Albumin 4.7 H 3.2-4.5 GM/DL Urine Color YELLOW Urine Clarity CLOUDY Urine pH 6.0 5-9 Urine Specific [place] >=1.030 1.016-1.022 Urine Protein NEGATIVE NEGATIVE Urine Glucose (UA) NEGATIVE NEGATIVE Urine Ketones NEGATIVE NEGATIVE Urine Nitrite NEGATIVE NEGATIVE Urine Bilirubin NEGATIVE NEGATIVE Urine Urobilinogen 0.2 < = 1.0 MG/DL Urine Leukocyte Esterase NEGATIVE NEGATIVE Urine RBC (Auto) NEGATIVE NEGATIVE Urine RBC NONE /HPF Urine WBC NONE /HPF Urine Squamous Epithelial Cells 2-5 /HPF Urine Crystals NONE /LPF Urine Bacteria TRACE /HPF Urine Casts NONE /LPF Urine Mucus SMALL H /LPF Urine Culture Indicated NO My Orders Orders - DORIS ALVAREZ Ua Culture If Indicated (05/23/22 16:29) Cbc With Automated Diff (05/23/22 17:08) Comprehensive Metabolic Panel (05/23/22 17:08) Ed Iv/Invasive Line Start (05/23/22 17:38) Ns Iv 1000 Ml (Sodium Chloride 0.9%) (05/23/22 17:45) Ondansetron Injection (Zofran Injectio (05/23/22 17:45) Ct Abd/Pelvis Wo(Kidney Stone) (05/23/22 18:05) Medications Given in ED Current Medications Medications Dose Ordered Sig/Yoana Route Start Time Stop Time Status Last Admin Dose Admin Ondansetron HCl 4 mg ONCE ONCE IVP 05/23/22 17:45 05/23/22 17:46 DC 05/23/22 17:44 4 MG Vital Signs/I&O 05/23/22 05/23/22 16:25 18:53 Temp 37.2 Pulse 80 70 Resp 16 18 B/P (MAP) 152/109 (123) 144/84 Pulse Ox 98 97 O2 Delivery Room Air Room Air Blood Pressure Mean: 123 Progress Progress Note : Time: 16:40 Progress Note patient assessed, will get labs. NS 1 L IV, Zofran 4 mg IV. 1730 labs all normal. Patient continuing to have pain. Will obtain CT. 1819 no vomiting or diarrhea through visit. Discussed CT results, no acute findings. D/C instructions and return precautions reviewed. Diagnostic Imaging Diagonstic Imaging: CT Plain Films/CT/US/NM/MRI: abdomen, pelvis Comments NAME: HARRY STEVENSON [facility] REC#: [id number] PT STATUS: REG ER : 1970 PHYSICIAN: DORIS ALVAREZ TRACK WELDER ADMIT DATE: 05/23/22/ER Signed Date of Exam:05/23/22 CT ABD/PELVIS WO(KIDNEY STONE) PROCEDURE: CT urinary tract, rule out kidney stone. TECHNIQUE: Multiple contiguous axial images were obtained through the abdomen and pelvis without the use of intravenous contrast. Auto Exposure Controls were utilized during the CT exam to meet ALARA standards for radiation dose reduction. INDICATION: Left-sided flank pain. Hematuria. COMPARISON: 08/08/2015. FINDINGS: The heart is unremarkable. The lung bases are clear. The liver, spleen, pancreas, adrenal glands, and kidneys have a normal noncontrast CT appearance. The gallbladder is surgically absent. There is no pathologically enlarged mesenteric or retroperitoneal adenopathy. The bowel loops are nondilated. The appendix is visualized in the right lower quadrant and has a normal appearance. There is no free fluid or free air. No acute osseous abnormalities. Ureters and bladder are normal. Surgical clips are seen in the left inguinal region. There is no free air, loculated collection, or adenopathy in the pelvis. IMPRESSION: No acute abnormality in the abdomen and pelvis. No evidence of renal calculi or hydronephrosis. Dictated by: Dictated on workstation # [id number] Dict: 05/23/221819 Trans: 05/23/221824 [facility] [id number] Interpreted by: TONI GONZALES DO Electronically signed by: TONI GONZALES DO 05/23/221824 Reviewed: Reviewed by Me Departure Impression Primary Impression: Abdominal pain Qualified Codes: R10.32 - Left lower quadrant pain Additional Impression: Diarrhea Qualified Codes: R19.7 - Diarrhea, unspecified Disposition: 01 HOME, SELF-CARE Condition: Stable Departure-Patient Inst. Decision time for Depature: 18:20 Referrals: [facility]/K (PCP/Family) Primary Care Physician Patient Instructions: Severe Abdominal Pain, Adult (DC) Add. Discharge Instructions: Use zofran for nausea/vomiting. Over the counter anti-diarrhea medication, as needed. Clear liquid diet, for next 24 hours, then bland diet. establish care with Primary Care Provider. Return to Emergency Dept for new/urgent healthcare problems. All discharge instructions reviewed with patient and/or family. Voiced understanding. Scripts Ondansetron (Ondansetron Odt) 4 Mg Tab.rapdis 4 MG PO Q6H PRN for NAUSEA/VOMITING, #8 TAB 0 Refills Prov: DORIS ALVAREZ 05/23/22 DORIS ALVAREZ May 23, 2022 17:38
[2022-05-23] MEDS ORDERED: ONDANSETRON 4 MG/2 ML (SDV) Z0FRAN IVP ONE (17:45)
[2022-05-23] MEDS ORDERED: NS IV 1000 ML 1,000 ML IV SCH (17:45)
[2022-05-23 17:48] LABS: BILIRUBIN,URINE NEGATIVE (NEGATIVE); CLARITY,URINE CLOUDY; COLOR,URINE YELLOW; GLUCOSE, URINE (UA) NEGATIVE (NEGATIVE); KETONES,URINE NEGATIVE (NEGATIVE); LEUKOCYTE ESTERASE ,URINE NEGATIVE (NEGATIVE); NITRITE,URINE NEGATIVE (NEGATIVE); PROTEIN,URINE NEGATIVE (NEGATIVE)
[2022-05-23 17:59] LABS: BACTERIA,URINE TRACE /HPF
--- NOTE | 2022-05-23 18:24 | Diagnostic Imaging Report ---
PROCEDURE: CT urinary tract, rule out kidney stone. TECHNIQUE: Multiple contiguous axial images were obtained through the abdomen and pelvis without the use of intravenous contrast. Auto Exposure Controls were utilized during the CT exam to meet ALARA standards for radiation dose reduction. INDICATION: Left-sided flank pain. Hematuria. COMPARISON: 08/08/2015. FINDINGS: The heart is unremarkable. The lung bases are clear. The liver, spleen, pancreas, adrenal glands, and kidneys have a normal noncontrast CT appearance. The gallbladder is surgically absent. There is no pathologically enlarged mesenteric or retroperitoneal adenopathy. The bowel loops are nondilated. The appendix is visualized in the right lower quadrant and has a normal appearance. There is no free fluid or free air. No acute osseous abnormalities. Ureters and bladder are normal. Surgical clips are seen in the left inguinal region. There is no free air, loculated collection, or adenopathy in the pelvis. IMPRESSION: No acute abnormality in the abdomen and pelvis. No evidence of renal calculi or hydronephrosis. Dictated by: Dictated on workstation # [id number]
[2022-05-23] MEDS ORDERED: ONDA4TAB11 PO (18:35)
[2022-05-23 18:53] VITALS: BP 144/84
== END 2022-05-23 18:53 | disposition home or self-care (01) ==
LOC: EDUNIT# 16:18 → ER 16:19
DX: R10.32 Left lower quadrant pain (principal); R19.7 Diarrhea, unspecified; Z90.49 Acquired absence of other specified parts of digestive tract
CPT/HCPCS: 36415; 74176; 80053; 81000; 85025; 96374; 99283